=== PATIENT | female | born 1980 | race Caucasian/White ===

== ENCOUNTER 2022-05-04 07:15 | Day surgery (SDC) | payer OTHER ==
[~2022-05-04] VITALS: Ht 157.5 cm; Wt 74.8 kg
[~2022-05-04 07:15] MED LIST: ATACAND16 MG PO; BOTOX COSMETI50 UNIT IM; CELEBREX200MG PO; FUSION PLUS CA1 EACH PO; HUMIRA PEN40 MG/0.2; MAXIMUM D3325 MCG PO; METFORMIN HCL500 M1 PO; METOPROLOL SUCC25 MG PO; PEPCID AC20 MG PO; PROTONIX40 MG PO; UBRELVY100 MG PO
[2022-05-04] MEDS ORDERED: NAPR500T14 PO (10:07)
[2022-05-04] MEDS ORDERED: MORGIDOX100 MG PO (10:07)
== END 2022-05-04 16:10 | disposition home or self-care (01) ==
LOC: CIR.AMB 07:15
PROVIDERS: ATTEND Obstetrics & Gynecology
DX: D25.0 Submucous leiomyoma of uterus (principal); Z20.822 Contact with and (suspected) exposure to COVID-19; I10 Essential (primary) hypertension; Z99.89 Dependence on other enabling machines and devices; G47.33 Obstructive sleep apnea (adult) (pediatric); E03.9 Hypothyroidism, unspecified; E11.9 Type 2 diabetes mellitus without complications; G43.909 Migraine, unspecified, not intractable, without status migrainosus; M19.90 Unspecified osteoarthritis, unspecified site; E66.9 Obesity, unspecified; Z79.84 Long term (current) use of oral hypoglycemic drugs